=== PATIENT | male | born 1970 | race Caucasian/White ===

== ENCOUNTER 2019-01-08 10:34 | Emergency (ER) | payer SELFPAY ==
[~2019-01-08] VITALS: Ht 182.9 cm; Wt 120.2 kg
--- NOTE | 2019-01-08 11:42 | Diagnostic Imaging Report ---
Indication: Left knee pain and swelling. Time of exam: 11:29 AM Three views of the left knee were obtained. Alignment is normal. Joint spaces are well maintained. The articular surfaces are smooth. No fracture or dislocation is seen. There is a large knee joint effusion in the suprapatellar location. Impression: Large effusion. No acute bony abnormality is detected. Dictated by: Dictated on workstation # [id number]
--- NOTE | 2019-01-08 11:59 | ED Lower Extremity ---
General Chief Complaint: Lower Extremity Stated Complaint: KNEE PAIN Nursing Triage Note: PT STATES LEFT KNEE PAIN AND SWELLING ONSET TUESDAY. PT DENIES ANY TRAUMA TO KNEE TO CAUSE INJURY. PT STATES ELEVATING KNEE AND ADVIL WITHOUT RELIEF. PT DENIES ANY NUMBNESS OR TINGLING IN LEFT LEG OR FOOT. PT WALKS WITH A CANE. Nursing Sepsis Screen: No Definite Risk History of Present Illness Date Seen by Provider: Jan 08, 2019 Time Seen by Provider: 11:05 Initial Comments 48-year-old male presents for left knee pain and swelling. He states that it began 2 days ago. He had no injury. He's been ambulating with a cane and holding it in his left hand. He's taken Advil and Aleve with no resolution of his symptoms. A previous history of injuries or surgeries to his left knee. Onset: other (2 days ago) Severity: mild Pain/Injury Location: left knee Method of Injury: unknown Modifying Factors: Improves With Rest Allergies and Home Medications Allergies Coded Allergies: No Known Drug Allergies (Unverified , 01/08/19) Home Medications Naproxen 500 Mg Tablet, 500 MG PO BID Prescribed by: YRIS GOTTI on 01/08/19 1213 Patient Home Medication List Home Medication List Reviewed: Yes Review of Systems Constitutional: no symptoms reported, see HPI Musculoskeletal: see HPI, joint pain (left knee) All Other Systems Reviewed Negative Unless Noted: Yes Past Pucbxki-Xyyeyh-Qsdzou Hx Past Med/Social Hx: Reviewed Nursing Past Med/Soc Hx Patient Social History Alcohol Use: Occasionally Uses Alcohol Beverage of Choice: Whiskey Recreational Drug Use: No Smoking Status: Current Someday Smoker Type Used: Cigarettes Recent Foreign Travel: No Contact w/Someone Who Travel: No Recent Infectious Disease Expo: No Recent Hopitalizations: No Physical Abuse: No Sexual Abuse: No Mistreated: No Fear: No Past Medical History Surgeries: Yes Appendectomy Respiratory: No Cardiac: Yes Hypertension Neurological: No Genitourinary: No Gastrointestinal: No Musculoskeletal: No Endocrine: No HEENT: No Cancer: No Psychosocial: No Integumentary: No Physical Exam Vital Signs Vital Signs - First Documented 01/08/19 01/08/19 11:05 12:54 Temp 97.6 Pulse 68 Resp 18 B/P (MAP) 121/82 (95) Pulse Ox 99 O2 Delivery Room Air Capillary Refill : Less Than 3 Seconds Height, Weight, BMI Height: 6'0" Weight: 265lbs. oz. 120.362522uj; BMI Method:Stated General Appearance: WD/WN, no apparent distress Cardiovascular: normal peripheral pulses, regular rate, rhythm Respiratory: chest non-tender, lungs clear, normal breath sounds Knees: left knee normal range of motion, left knee no evidence of injury, left knee joint effusion (moderate), left knee pain, left knee soft tissue tenderness, left knee other (full range of motion, no medial or lateral instability, negative Clifford, negative anterior drawer and Cordell.) Neurologic/Psychiatric: no motor/sensory deficits, alert, normal mood/affect, oriented x 3 Skin: normal color, warm/dry Progress/Results/Core Measures Results/Orders My Orders Orders - YRIS GOTTI Knee, Left, 3 Views (01/08/19 11:19) Naproxen Tablet (Naprosyn Tablet) (01/08/19 12:15) Medications Given in ED Current Medications Medications Dose Ordered Sig/Dorian Route Start Time Stop Time Status Last Admin Dose Admin Naproxen 500 mg ONCE ONCE PO 01/08/19 12:15 01/08/19 12:16 DC 01/08/19 12:52 500 MG Vital Signs/I&O 01/08/19 01/08/19 11:05 12:54 Temp 97.6 97.6 Pulse 68 68 Resp 18 18 B/P (MAP) 121/82 (95) 121/82 (95) Pulse Ox 99 O2 Delivery Room Air Blood Pressure Mean: 95 Diagnostic Imaging Diagonstic Imaging: Xray Comments NAME: KARINA [facility] REC#: [id number] PT STATUS: REG ER : 1970 PHYSICIAN: YRIS GOTTI ADMIT DATE: 01/08/19/ER Draft Date of Exam:01/08/19 KNEE, LEFT, 3 VIEWS Indication: Left knee pain and swelling. Time of exam: 11:29 AM Three views of the left knee were obtained. Alignment is normal. Joint spaces are well maintained. The articular surfaces are smooth. No fracture or dislocation is seen. There is a large knee joint effusion in the suprapatellar location. Impression: Large effusion. No acute bony abnormality is detected. Dictated on workstation # [id number] Dict: 01/08/19 1138 Trans: 01/08/19 1141 [facility] [id number] Interpreted by: AMERICA NAPIER MD Electronically signed by: Reviewed: Reviewed by Me Departure Impression Primary Impression: Left knee pain Qualified Codes: M25.562 - Pain in left knee Additional Impression: Effusion, left knee Disposition: 01 HOME, SELF-CARE Condition: Improved Departure-Patient Inst. Decision time for Depature: 12:00 Patient Instructions: Knee Pain (DC) Add. Discharge Instructions: Take the naproxen 1 tablet twice daily with food. You may use Tylenol 650 mg every 6-8 hours as needed for additional pain relief. Use Malachi wrap when ambulatory and ice pack to left knee 20 min every 2 hours. Follow-up with your primary care provider at [facility] for referral to orthopedics if symptoms are not improving or worsen. Continue to use the cane, in your right hand. Return to emergency department for new, urgent health care needs. All discharge instructions reviewed with patient and/or family. Voiced understanding. Scripts Naproxen (Naprosyn) 500 Mg Tablet 500 MG PO BID, #30 TAB 0 Refills Prov: YRIS GOTTI 01/08/19 YRIS GOTTI Jan 08, 2019 11:59
[2019-01-08] MEDS ORDERED: NAPR-1071 PO ×2 (12:11→12:13)
[2019-01-08] MEDS ORDERED: NAPROXEN 250 MG (NAPROSYN) TABLET PO ONE (12:15)
[2019-01-08 12:54] VITALS: BP 121/82
== END 2019-01-08 12:30 | disposition home or self-care (01) ==
LOC: EDUNIT# 10:34 → ER 10:36
DX: M25.462 Effusion, left knee (principal); I10 Essential (primary) hypertension; F17.210 Nicotine dependence, cigarettes, uncomplicated; Z90.49 Acquired absence of other specified parts of digestive tract
CPT/HCPCS: 73562

== ENCOUNTER 2021-03-01 17:44 | Emergency (ER) | payer SELFPAY ==
[~2021-03-01] VITALS: Ht 185.4 cm; Wt 128.3 kg
[~2021-03-01 17:44] MED LIST: NAPR-1071 PO
--- OUTSIDE RECORDS SUMMARY | 2021-03-01 17:50 | XMS REPORT | Clinical Summary ---
Author Author [facility] Organization [facility] Address Unknown Phone Unavailable Care Team Providers Care Child Care Coordinator Name Role Phone PCP Unavailable Allergies Not on File Medications Not on file Active Problems Not on file Social History Date Tobacco Use Types Packs/Day Years Used Never Assessed Sex Assigned at Date Recorded Not on file Last Filed Vital Signs Not on file Plan of Treatment Not on file Results Not on filefrom Last 3 Months Advance Directives For more information, please contact: [phone] Patient Help Desk Technician Explanation Type Date Recorded Health Care 10/27/2013 12:28 AM Directive
[2021-03-01] MEDS ORDERED: KETOROLAC 30 MG/ML VIAL IVP ONE (18:15)
[2021-03-01] MEDS ORDERED: NS IV 1000 ML 1,000 ML IV SCH (18:15)
[2021-03-01 18:28] LABS: HEMATOCRIT 44 % (40-54); HEMOGLOBIN 15.9 G/DL (13.3-17.7); MEAN CORPUSCULAR HEMOGLOBIN 32 PG (25-34); MEAN CORPUSCULAR HGB CONC 36 G/DL (32-36); MEAN CORPUSCULAR VOLUME 87 FL (80-99); MEAN PLATELET VOLUME 10.9 FL (7.4-10.4); PLATELET COUNT 144 10^3/uL (130-400); WHITE BLOOD COUNT 5.5 10^3/uL (4.3-11.0)
[2021-03-01 18:29] LABS: BASOPHILS % (AUTO) 0 % (0-10); EOSINOPHILS % (AUTO) 0 % (0-10); LYMPHOCYTES # (AUTO) 0.7 X 10^3 (1.0-4.0); LYMPHOCYTES % (AUTO) 13 % (12-44); MONOCYTES # (AUTO) 0.3 X 10^3 (0.0-1.0); MONOCYTES % (AUTO) 6 % (0-12); NEUTROPHILS # (AUTO) 4.4 X 10^3 (1.8-7.8); NEUTROPHILS % (AUTO) 81 % (42-75)
--- NOTE | 2021-03-01 18:37 | Diagnostic Imaging Report ---
Indication: Shortness of breath Portable chest 6:19 PM Heart size and pulmonary vascularity are normal. Lungs are clear. There are no effusions or pneumothoraces. IMPRESSION: Negative chest Dictated by: Dictated on workstation # [id number]
[2021-03-01 18:48] LABS: ALANINE AMINOTRANSFERASE 243 U/L (0-55); ALBUMIN 4.4 GM/DL (3.2-4.5); ALKALINE PHOSPHATASE 90 U/L (40-136); BILIRUBIN,TOTAL 0.4 MG/DL (0.1-1.0); BUN/CREATININE RATIO 19; CARBON DIOXIDE 25 MMOL/L (21-32); CHLORIDE 88 MMOL/L (98-107); CREATININE SERUM 1.35 MG/DL (0.60-1.30); GFR ESTIMATED 56; GLUCOSE 236 MG/DL (70-105); POTASSIUM 4.7 MMOL/L (3.6-5.0); SODIUM 128 MMOL/L (135-145); TOTAL PROTEIN 8.1 GM/DL (6.4-8.2)
[2021-03-01] MEDS ORDERED: HOLD METFORMIN - RECEIVED CONTRAST 20 ML VIAL IV SCH (19:00)
[2021-03-01] MEDS ORDERED: IOHEXOL 350 MG/ML 100 ML (OMNIPAQUE 350) VIAL IV ONE (19:00)
[2021-03-01] MEDS ORDERED: NS 100 ML (IVPB) BAG IV ONE (19:00)
[2021-03-01] MEDS ORDERED: CATHETER FLUSH 10 ML SYR IV PRN (19:00)
--- NOTE | 2021-03-01 19:15 | ED Respiratory ---
General Chief Complaint: Respiratory Problems Stated Complaint: SOB; LETHARGY; COVID+ Nursing Triage Note: Patient presents to the ED with c/o shortness of breath. He reports that he tested positive for COVID on February 23 but his symptoms began on February 19. Patient states that 2 days ago he felt like he was paralyzed and unable to move. He reports that his symptoms have improved today but is concerned about pneumonia due to his continued shortness of breath. Patient ambulated from vehicle to room independently. Source: patient Exam Limitations: no limitations History of Present Illness Date Seen by Provider: Mar 01, 2021 Time Seen by Provider: 18:00 Initial Comments Patient is a 50-year-old male tested positive for Covid 6 days ago presents with shortness of breath cough, body aches and fatigue. Currently denies fever, nausea vomiting or sweats. Reports mild headache. Denies productive cough. Reports chest tightness chest pain with dyspnea with moderate exertion. He was treated with prednisone which she has completed, doxycycline and albuterol which he is currently taking. No history of cardiopulmonary disease. No other acute symptoms or complaints. Timing/Duration: week, getting worse Prior Episodes/Possible Cause: no prior episodes Associated Symptoms: other Allergies and Home Medications Allergies Coded Allergies: No Known Drug Allergies (Unverified , 01/08/19) Home Medications Naproxen 500 Mg Tablet, 500 MG PO BID Prescribed by: YRIS GTOTI on 01/08/19 1213 Patient Home Medication List Home Medication List Reviewed: Yes Review of Systems Review of Systems Constitutional: see HPI EENTM: see HPI Respiratory: see HPI Cardiovascular: see HPI Gastrointestinal: see HPI Genitourinary: see HPI Musculoskeletal: see HPI Skin: see HPI Psychiatric/Neurological: See HPI, Anxiety Hematologic/Lymphatic: See HPI All Other Systems Reviewed Negative Unless Noted: Yes Past Lfhhqas-Tptgwg-Jzkooe Hx Patient Social History Tobacco Use?: Yes Tobacco type used: Cigarettes Smoking Status: Former Smoker Use of E-Cig and/or Vaping dev: No Substance use?: No Alcohol Use?: Yes Alcohol type: Hard Liquor Alcohol Frequency: Couple times a week Pt feels they are or have been: No Past Medical History Surgeries: Yes Appendectomy Respiratory: No Cardiac: Yes Hypertension Neurological: No Genitourinary: No Gastrointestinal: No Musculoskeletal: No Endocrine: No HEENT: No Cancer: No Psychosocial: No Integumentary: No Physical Exam Vital Signs - First Documented 03/01/21 18:00 Temp 36.7 Pulse 67 Resp 21 B/P (MAP) 101/62 (75) Pulse Ox 95 O2 Delivery Room Air Capillary Refill : Less Than 3 Seconds Height: 6'0" Weight: 265lbs. oz. 120.483138ge; 37.00 BMI Method:Stated General Appearance: WD/WN, no apparent distress Eyes: Bilateral Eye Normal Inspection, Bilateral Eye PERRL, Bilateral Eye EOMI HEENT: PERRL/EOMI, TMs normal, pharynx normal, other Neck: non-tender, full range of motion, supple, normal inspection Respiratory: other (Diminished breath sounds bilaterally.) Cardiovascular: normal peripheral pulses, regular rate, rhythm Gastrointestinal: normal bowel sounds, non tender, soft Extremities: non-tender, normal inspection Neurologic/Psychiatric: torch straightener II-XII nml as tested, no motor/sensory deficits, alert, oriented x 3 Focused Exam Sepsis Stage: Ruled Out Progress/Results/Core Measures Suspected Sepsis SIRS Temperature: Pulse: 67 Respiratory Rate: 21 Laboratory Tests 03/01/21 18:24: White Blood Count 5.5 Blood Pressure 101 /62 Mean: 75 Laboratory Tests 03/01/21 18:24: Creatinine 1.35H, Platelet Count 144, Total Bilirubin 0.4 Results/Orders Lab Results Laboratory Tests Test 03/01/21 18:24 Range/Units White Blood Count 5.5 4.3-11.0 10^3/uL Red Blood Count 5.01 4.35-5.85 10^6/uL Hemoglobin 15.9 13.3-17.7 G/DL Hematocrit 44 40-54 % Mean Corpuscular Volume 87 80-99 FL Mean Corpuscular Hemoglobin 32 25-34 PG Mean Corpuscular Hemoglobin Concent 36 32-36 G/DL Red Cell Distribution Width 12.5 10.0-14.5 % Platelet Count 144 130-400 10^3/uL Mean Platelet Volume 10.9 H 7.4-10.4 FL Immature Granulocyte % (Auto) 1 % Neutrophils (%) (Auto) 81 H 42-75 % Lymphocytes (%) (Auto) 13 12-44 % Monocytes (%) (Auto) 6 0-12 % Eosinophils (%) (Auto) 0 0-10 % Basophils (%) (Auto) 0 0-10 % Neutrophils # (Auto) 4.4 1.8-7.8 X 10^3 Lymphocytes # (Auto) 0.7 L 1.0-4.0 X 10^3 Monocytes # (Auto) 0.3 0.0-1.0 X 10^3 Eosinophils # (Auto) 0.0 0.0-0.3 10^3/uL Basophils # (Auto) 0.0 0.0-0.1 10^3/uL Immature Granulocyte # (Auto) 0.0 0.0-0.1 10^3/uL Sodium Level 128 L 135-145 MMOL/L Potassium Level 4.7 3.6-5.0 MMOL/L Chloride Level 88 L 98-107 MMOL/L Carbon Dioxide Level 25 21-32 MMOL/L Anion Gap 15 H 5-14 MMOL/L Blood Urea Nitrogen 26 H 7-18 MG/DL Creatinine 1.35 H 0.60-1.30 MG/DL Estimat Glomerular Filtration Rate 56 BUN/Creatinine Ratio 19 Glucose Level 236 H 70-105 MG/DL Calcium Level 9.0 8.5-10.1 MG/DL Corrected Calcium 8.7 8.5-10.1 MG/DL Total Bilirubin 0.4 0.1-1.0 MG/DL Aspartate Amino Transf (AST/SGOT) 323 H 5-34 U/L Alanine Aminotransferase (ALT/SGPT) 243 H 0-55 U/L Alkaline Phosphatase 90 40-136 U/L Troponin I < 0.30 <0.30 NG/ML Pro-B-Type Natriuretic Peptide 62.1 <75.0 PG/ML Total Protein 8.1 6.4-8.2 GM/DL Albumin 4.4 3.2-4.5 GM/DL My Orders Orders - VANCE MORROW DO Cbc With Automated Diff (03/01/21 18:10) Comprehensive Metabolic Panel (03/01/21 18:10) Chest 1 View Ap/Pa Only (03/01/21 18:10) Troponin I Fs (03/01/21 18:10) Probnp Fs (03/01/21 18:10) Ns Iv 1000 Ml (Sodium Chloride 0.9%) (03/01/21 18:15) Ketorolac Injection (Toradol Injection) (03/01/21 18:15) Ct Angio Chest W (03/01/21 18:49) Iohexol Injection (Omnipaque 350 Mg/Ml 1 (03/01/21 19:00) Received Contrast (Hold Metformin- Contr (03/01/21 19:00) Sodium Chloride Flush (Catheter Flush Sy (03/01/21 19:00) Ns (Ivpb) (Sodium Chloride 0.9% Ivpb Bag (03/01/21 19:00) Medications Given in ED Current Medications Medications Dose Ordered Sig/Dorian Route Start Time Stop Time Status Last Admin Dose Admin Iohexol 100 ml ONCE ONCE IV 03/01/21 19:00 03/01/21 19:01 DC 03/01/21 19:19 100 ML Ketorolac Tromethamine 30 mg ONCE ONCE IVP 03/01/21 18:15 03/01/21 18:16 DC 03/01/21 18:24 30 MG Sodium Chloride 100 ml ONCE ONCE IV 03/01/21 19:00 03/01/21 19:01 DC 03/01/21 19:19 80 ML Vital Signs/I&O 03/01/21 18:00 Temp 36.7 Pulse 67 Resp 21 B/P (MAP) 101/62 (75) Pulse Ox 95 O2 Delivery Room Air Capillary Refill : Less Than 3 Seconds Blood Pressure Mean: 75 Departure Communication (Admissions) Chest x-ray: No acute cardiopulmonary disease per radiology report. CTA chest: No findings of PE. IV fluids, Toradol given. Vital signs stable. Chest x-ray clear. Lab work nonspecific. History of alcoholism. Recommendations are continued supportive care with watchful waiting and PCP follow-up in 1 week. Return precautions reviewed. Patient verbalized understanding and agreement discharge instructions prior to departure. Impression Primary Impression: COVID Additional Impressions: Hyponatremia Transaminitis Disposition: HOME, SELF-CARE Condition: Stable Departure-Patient Inst. Referrals: MATT NAGY APRN (PCP) Primary Care Physician [facility] (Family) Primary Care Physician Patient Instructions: COVID-19 (DC) Add. Discharge Instructions: You were evaluated in the emergency department for cough, shortness of breath generalized weakness. Your symptoms are consistent with Covid. Chest x-ray and CT imaging were performed did not show evidence of bacterial pneumonia or pulmonary emboli. It is important that you follow-up with your PCP in 1 week to review lab results and for reevaluation. Return to the ED if new or worsening symptoms. All discharge instructions reviewed with patient and/or family. Voiced understanding. VANCE MORROW DO Mar 01, 2021 19:15
--- NOTE | 2021-03-01 19:50 | Diagnostic Imaging Report ---
PROCEDURE: CT angiography of the chest with contrast. TECHNIQUE: Multiple contiguous axial images were obtained through the chest after uneventful bolus administration of intravenous contrast. 3D reconstructed CTA MIP acquisitions were also performed. Auto Exposure Controls were utilized during the CT exam to meet ALARA standards for radiation dose reduction. INDICATION: Chest pain, shortness of breath There are some faint patchy groundglass infiltrates in the lungs. There is no pulmonary embolus. Aorta appears normal. There is no evidence for right ventricular strain. There is no effusion or pneumothorax. There is no hilar or mediastinal lymphadenopathy. IMPRESSION: Faint patchy groundglass infiltrates in the lungs consistent with Covid pneumonia. Dictated by: Dictated on workstation # [id number]
[2021-03-01 20:04] VITALS: BP 98/62
== END 2021-03-01 20:04 | disposition home or self-care (01) ==
LOC: EDUNIT# 17:44 → ER FS 17:46
DX: U07.1 COVID-19 (principal); E87.1 Hypo-osmolality and hyponatremia; R74.01 Elevation of levels of liver transaminase levels; I10 Essential (primary) hypertension; Z87.891 Personal history of nicotine dependence
CPT/HCPCS: 36415; 71045; 71275; 80053; 83880; 84484; 85025

== ENCOUNTER 2021-03-06 09:44 | Emergency (ER) | payer SELFPAY ==
[~2021-03-06] VITALS: Ht 182.9 cm; Wt 128.4 kg
--- NOTE | 2021-03-06 09:59 | ED General ---
General Stated Complaint: SOB; COVID+ History of Present Illness Date Seen by Provider: Mar 06, 2021 Time Seen by Provider: 09:59 Initial Comments 50-year-old male presents with shortness of air worsening last night. Dx with Covid on 20 February. Seen by his PCP on 23 February and given steroids and a Z-pack. Seen in this ER on 01 March and had work-up including CT chest and sent home. Overall feels like he is doing ok, denies signif PMHx...tells nurse he used to be an alcoholic, but states he no longer drinks. Allergies and Home Medications Allergies Coded Allergies: No Known Drug Allergies (Unverified , 01/08/19) Home Medications Naproxen 500 Mg Tablet, 500 MG PO BID Prescribed by: YRIS GOTTI on 01/08/19 1213 Patient Home Medication List Home Medication List Reviewed: Yes Review of Systems Review of Systems Constitutional: No chills, No fever; malaise; No weakness EENTM: no symptoms reported Respiratory: cough; No orthopnea; short of breath; No stridor, No wheezing Cardiovascular: No edema, No palpitations Gastrointestinal: No abdominal pain, No loss of appetite, No nausea, No vomiting Skin: No change in color, No rash Psychiatric/Neurological: Denies Headache, Denies Numbness, Denies Paresthesia, Denies Seizure, Denies Weakness Past Nmnqony-Rbxodp-Gjyrzh Hx Patient Social History Tobacco Use?: No Alcohol Use?: No Past Medical History Surgeries: Yes Appendectomy Respiratory: No Cardiac: Yes Hypertension Neurological: No Genitourinary: No Gastrointestinal: No Musculoskeletal: No Endocrine: No HEENT: No Cancer: No Psychosocial: No Integumentary: No Physical Exam Vital Signs Vital Signs - First Documented 03/06/21 03/06/21 09:55 15:45 Temp 35.9 Pulse 72 Resp 20 B/P (MAP) 102/61 (75) Pulse Ox 92 O2 Delivery Room Air O2 Flow Rate 2.00 Capillary Refill : Height, Weight, BMI Height: 6'0" Weight: 265lbs. oz. 120.572835nb; 37.00 BMI Method:Stated General Appearance: No Apparent Distress, WD/WN HEENT: PERRL/EOMI, Normal ENT Inspection Respiratory: Chest Non Tender, Lungs Clear, Normal Breath Sounds, No Accessory Muscle Use, No Respiratory Distress Cardiovascular: Regular Rate, Rhythm, No Gallop, No JVD Gastrointestinal: Non Tender, Soft Back: Normal Inspection, No CVA Tenderness Extremity: Normal Capillary Refill, Non Tender Neurologic/Psychiatric: Alert, Oriented x3, No Motor/Sensory Deficits, Normal Mood/Affect Skin: Normal Color, Warm/Dry Focused Exam Lactate Level 03/06/21 11:30: Lactic Acid Level 1.34 Lactic Acid Level Laboratory Tests Test 03/06/21 11:30 Lactic Acid Level 1.34 MMOL/L (0.50-2.00) Progress/Results/Core Measures Suspected Sepsis SIRS Temperature: Pulse: Respiratory Rate: Laboratory Tests 03/06/21 10:15: White Blood Count 3.3L Blood Pressure / Mean: 03/06/21 11:30: Lactic Acid Level 1.34 Laboratory Tests 03/06/21 10:15: Creatinine 1.65H, Platelet Count 193, Total Bilirubin 0.5 Results/Orders Lab Results Laboratory Tests Test 03/06/21 10:15 03/06/21 11:30 Range/Units White Blood Count 3.3 L 4.3-11.0 10^3/uL Red Blood Count 4.63 4.30-5.52 10^6/uL Hemoglobin 14.3 13.3-17.7 g/dL Hematocrit 40 40-54 % Mean Corpuscular Volume 87 80-99 fL Mean Corpuscular Hemoglobin 31 25-34 pg Mean Corpuscular Hemoglobin Concent 36 32-36 g/dL Red Cell Distribution Width 12.3 10.0-14.5 % Platelet Count 193 130-400 10^3/uL Mean Platelet Volume 10.6 9.0-12.2 fL Immature Granulocyte % (Auto) 1 % Neutrophils (%) (Auto) 81 H 42-75 % Lymphocytes (%) (Auto) 12 12-44 % Monocytes (%) (Auto) 7 0-12 % Eosinophils (%) (Auto) 0 0-10 % Basophils (%) (Auto) 0 0-10 % Neutrophils # (Auto) 2.7 1.8-7.8 X 10^3 Lymphocytes # (Auto) 0.4 L 1.0-4.0 X 10^3 Monocytes # (Auto) 0.2 0.0-1.0 X 10^3 Eosinophils # (Auto) 0.0 0.0-0.3 10^3/uL Basophils # (Auto) 0.0 0.0-0.1 10^3/uL Immature Granulocyte # (Auto) 0.0 0.0-0.1 10^3/uL D-Dimer 1.03 H 0.00-0.49 UG/ML Sodium Level 128 L 135-145 MMOL/L Potassium Level 4.4 3.6-5.0 MMOL/L Chloride Level 90 L 98-107 MMOL/L Carbon Dioxide Level 26 21-32 MMOL/L Anion Gap 12 5-14 MMOL/L Blood Urea Nitrogen 39 H 7-18 MG/DL Creatinine 1.65 H 0.60-1.30 MG/DL Estimat Glomerular Filtration Rate 44 BUN/Creatinine Ratio 24 Glucose Level 318 H 70-105 MG/DL Calcium Level 8.4 L 8.5-10.1 MG/DL Corrected Calcium 8.6 8.5-10.1 MG/DL Total Bilirubin 0.5 0.1-1.0 MG/DL Aspartate Amino Transf (AST/SGOT) 96 H 5-34 U/L Alanine Aminotransferase (ALT/SGPT) 117 H 0-55 U/L Alkaline Phosphatase 104 40-136 U/L C-Reactive Protein 18.08 H <0.50 MG/DL Pro-B-Type Natriuretic Peptide 124.4 H <75.0 PG/ML Total Protein 7.4 6.4-8.2 GM/DL Albumin 3.7 3.2-4.5 GM/DL Procalcitonin 0.77 H <0.10 NG/ML Serum Alcohol < 10 <10 MG/DL Lactic Acid Level 1.34 0.50-2.00 MMOL/L Ferritin 3536.4 H 32.0-356.0 ng/mL My Orders Orders - ROVENSTINE,UMU L DO Chest 1 View Ap/Pa Only (03/06/21 10:12) Cbc With Automated Diff (03/06/21 10:12) Comprehensive Metabolic Panel (03/06/21 10:12) Ns Iv 1000 Ml (Sodium Chloride 0.9%) (03/06/21 11:00) Methylprednisolone Sod Succ (Solu-Medrol (03/06/21 11:00) Alcohol (03/06/21 11:07) Procalcitonin (Pct) (03/06/21 11:10) Crp Fs (03/06/21 11:10) Ferritin (03/06/21 11:10) Probnp Fs (03/06/21 11:10) Lactic Acid Analyzer (03/06/21 11:10) Fibrin Degradation Products (03/06/21 11:10) Ns Iv 1000 Ml (Sodium Chloride 0.9%) (03/06/21 11:22) Methylprednisolone Sod Succ (Solu-Medrol (03/06/21 11:22) Medications Given in ED Vital Signs/I&O 03/06/21 03/06/21 09:55 15:45 Temp 35.9 Pulse 72 74 Resp 20 18 B/P (MAP) 102/61 (75) 125/82 Pulse Ox 92 95 O2 Delivery Room Air Nasal Cannula O2 Flow Rate 2.00 Capillary Refill : Diagnostic Imaging Diagonstic Imaging: Xray Plain Films/CT/US/NM/MRI: chest Comments Date of Exam:03/06/21 CHEST 1 VIEW AP/PA ONLY EXAMINATION: Chest, one view. HISTORY: COVID-19, shortness of breath. COMPARISON: Chest radiograph 03/01/2021. FINDINGS: Heart size is mildly enlarged. Pulmonary vasculature is normal. There are mild interstitial opacities throughout the lungs, greatest within the lung bases. No pleural effusion or pneumothorax. The osseous structures are intact. IMPRESSION: 1. Mild interstitial opacities within the lungs compatible with history of COVID-19 and pneumonia. Dictated on workstation # [id number] Dict: 03/06/21 1052 Trans: 03/06/21 1055 [id number] Interpreted by: CHAYA JENKINS DO Electronically signed by: Departure Communication (Admissions) spoke to Dr Patino who accepts for admission (pending bed avail) Impression Primary Impression: COVID Additional Impressions: Hypoxia Hyponatremia Dehydration Disposition: HOME, SELF-CARE Condition: Improved Admissions Decision to Admit Reason: Admit from ER (General) Decision to Admit/Date: Mar 06, 2021 Time/Decision to Admit Time: 11:00 Transfer Transfer Reason: Diversion Time Spoke to Accepting Phy: 12:47 Transfer Progress Notes Difficulty finding in-pt. beds. - [facility]- no beds, [facility]- no beds, [facility]- no beds Called Marilee Garcia and got accepting @ 1247 Iliana Riley NP accepts Given HPI and pertinent labs. Pt stable Departure-Patient Inst. Referrals: MATT NAGY APRN (PCP) Primary Care Physician [facility] (Family) Primary Care Physician UMU JOHNSON DO Mar 06, 2021 09:59
[2021-03-06 10:29] LABS: HEMATOCRIT 40 % (40-54); HEMOGLOBIN 14.3 g/dL (13.3-17.7); MEAN CORPUSCULAR HEMOGLOBIN 31 pg (25-34); MEAN CORPUSCULAR VOLUME 87 fL (80-99); WHITE BLOOD COUNT 3.3 10^3/uL (4.3-11.0)
[2021-03-06 10:30] LABS: BASOPHILS % (AUTO) 0 % (0-10); EOSINOPHILS % (AUTO) 0 % (0-10); LYMPHOCYTES # (AUTO) 0.4 X 10^3 (1.0-4.0); LYMPHOCYTES % (AUTO) 12 % (12-44); MEAN CORPUSCULAR HGB CONC 36 g/dL (32-36); MEAN PLATELET VOLUME 10.6 fL (9.0-12.2); MONOCYTES # (AUTO) 0.2 X 10^3 (0.0-1.0); MONOCYTES % (AUTO) 7 % (0-12); NEUTROPHILS # (AUTO) 2.7 X 10^3 (1.8-7.8); NEUTROPHILS % (AUTO) 81 % (42-75); PLATELET COUNT 193 10^3/uL (130-400)
[2021-03-06 10:50] LABS: BILIRUBIN,TOTAL 0.5 MG/DL (0.1-1.0); CALCIUM 8.4 MG/DL (8.5-10.1); CREATININE SERUM 1.65 MG/DL (0.60-1.30); POTASSIUM 4.4 MMOL/L (3.6-5.0)
[2021-03-06 10:51] LABS: ALBUMIN 3.7 GM/DL (3.2-4.5); TOTAL PROTEIN 7.4 GM/DL (6.4-8.2)
--- NOTE | 2021-03-06 10:55 | Diagnostic Imaging Report ---
EXAMINATION: Chest, one view. HISTORY: COVID-19, shortness of breath. COMPARISON: Chest radiograph 03/01/2021. FINDINGS: Heart size is mildly enlarged. Pulmonary vasculature is normal. There are mild interstitial opacities throughout the lungs, greatest within the lung bases. No pleural effusion or pneumothorax. The osseous structures are intact. IMPRESSION: 1. Mild interstitial opacities within the lungs compatible with history of COVID-19 and pneumonia. Dictated by: Dictated on workstation # [id number]
[2021-03-06] MEDS ORDERED: NS IV 1000 ML 1,000 ML IV SCH (11:00)
[2021-03-06] MEDS ORDERED: methylPREDNISolone 125 MG (Solu-MEDROL) VIAL IVP ONE (11:00)
[2021-03-06] MEDS ORDERED: NS IV 1000 ML 1,000 ML ONE (11:22)
[2021-03-06] MEDS ORDERED: methylPREDNISolone 125 MG (Solu-MEDROL) VIAL ONE (11:22)
[2021-03-06 15:45] VITALS: BP 125/82
== END 2021-03-06 15:45 | disposition short-term general hospital (02) ==
LOC: EDUNIT# 09:44 → ER FS 09:47
DX: U07.1 COVID-19 (principal); R09.02 Hypoxemia; E87.1 Hypo-osmolality and hyponatremia; E86.0 Dehydration; I10 Essential (primary) hypertension
CPT/HCPCS: 36415; 71045; 80053; 82728; 83605; 83880; 84145; 85025; 85379; 86141; 99285; G0480; 80320

== ENCOUNTER 2021-03-10 12:40 | Emergency (ER) | payer SELFPAY ==
[~2021-03-10] VITALS: Ht 182.8 cm; Wt 128.4 kg
--- NOTE | 2021-03-10 12:58 | ED Respiratory ---
General Chief Complaint: Respiratory Problems Stated Complaint: LOW STATS Source: patient Exam Limitations: no limitations History of Present Illness Date Seen by Provider: Mar 10, 2021 Time Seen by Provider: 12:52 Initial Comments 50 y/o male presents from out-pt clinic where he was seen today for a hospital follow-up. Patient says he felt ok yesterday, but the act of going to the clinic today, wore him out and he was very fatigued and more soa. Sx onset 02/18, Dx on 02/20 then seen in [facility] and given Abx and steroids (prior to onset of hypoxia or dypnea). Seen in the ER again on 03/03, given another Abx, then again on 03/06 and admitted w progression of illness & worsening sx. Allergies and Home Medications Allergies Coded Allergies: No Known Drug Allergies (Unverified , 01/08/19) Home Medications Dexamethasone 6 Mg Tablet, 6 MG PO DAILY Prescribed by: UMU HERNANDEZSTMARIBEL on 03/10/21 1406 Famotidine 20 Mg Tablet, 40 MG PO BID Prescribed by: UMU HERNANDEZSTMARIBEL on 03/10/21 1406 Ivermectin 3 Mg Tablet, 30 MG PO DAILY Prescribed by: UMU HERNANDEZSTMARIBEL on 03/10/21 1406 Naproxen 500 Mg Tablet, 500 MG PO BID Prescribed by: YRIS GOTTI on 01/08/19 1213 Patient Home Medication List Home Medication List Reviewed: Yes Review of Systems Review of Systems Constitutional: malaise EENTM: no symptoms reported Respiratory: cough, short of breath Cardiovascular: No chest pain, No edema, No palpitations, No syncope Gastrointestinal: No abdominal pain, No constipation; diarrhea (having loose st ool), loss of appetite; No nausea, No vomiting Musculoskeletal: No back pain, No joint pain, No muscle pain Skin: No change in color, No rash Past Zapqepr-Kxcdnq-Qqonfd Hx Patient Social History Tobacco Use?: No Past Medical History Surgery/Hospitalization HX: HTN and pre-diabetes Surgeries: Yes Appendectomy Respiratory: No Cardiac: Yes Hypertension Neurological: No Genitourinary: No Gastrointestinal: No Musculoskeletal: No Endocrine: No HEENT: No Cancer: No Psychosocial: No Integumentary: No Physical Exam Vital Signs - First Documented 03/10/21 12:48 Temp 37.1 Pulse 89 Resp 24 B/P (MAP) 109/71 (84) Pulse Ox 96 O2 Delivery Nasal Cannula Capillary Refill : Height: 6'0" Weight: 265lbs. oz. 120.380815gm; 38.00 BMI Method:Stated General Appearance: WD/WN, no apparent distress HEENT: PERRL/EOMI, normal ENT inspection Neck: non-tender, supple Respiratory: chest non-tender, lungs clear, normal breath sounds, no respiratory distress, no accessory muscle use Cardiovascular: no edema, no JVD Gastrointestinal: non tender, soft Extremities: normal range of motion, non-tender, no pedal edema Neurologic/Psychiatric: no motor/sensory deficits, alert, normal mood/affect, oriented x 3 Skin: normal color, warm/dry Progress/Results/Core Measures Suspected Sepsis SIRS Temperature: Pulse: Respiratory Rate: Laboratory Tests 03/10/21 13:11: White Blood Count 10.1 Blood Pressure / Mean: Laboratory Tests 03/10/21 13:11: Creatinine 1.19, Platelet Count 433H, Total Bilirubin 0.8 Results/Orders Lab Results Laboratory Tests Test 03/10/21 13:11 Range/Units White Blood Count 10.1 4.3-11.0 10^3/uL Red Blood Count 4.88 4.30-5.52 10^6/uL Hemoglobin 15.2 13.3-17.7 g/dL Hematocrit 43 40-54 % Mean Corpuscular Volume 87 80-99 fL Mean Corpuscular Hemoglobin 31 25-34 pg Mean Corpuscular Hemoglobin Concent 36 32-36 g/dL Red Cell Distribution Width 12.4 10.0-14.5 % Platelet Count 433 H 130-400 10^3/uL Mean Platelet Volume 9.7 9.0-12.2 fL Immature Granulocyte % (Auto) 3 % Neutrophils (%) (Auto) 84 H 42-75 % Lymphocytes (%) (Auto) 7 L 12-44 % Monocytes (%) (Auto) 5 0-12 % Eosinophils (%) (Auto) 1 0-10 % Basophils (%) (Auto) 0 0-10 % Neutrophils # (Auto) 8.5 H 1.8-7.8 X 10^3 Lymphocytes # (Auto) 0.7 L 1.0-4.0 X 10^3 Monocytes # (Auto) 0.5 0.0-1.0 X 10^3 Eosinophils # (Auto) 0.1 0.0-0.3 10^3/uL Basophils # (Auto) 0.0 0.0-0.1 10^3/uL Immature Granulocyte # (Auto) 0.3 H 0.0-0.1 10^3/uL Neutrophils % (Manual) 79 % Lymphocytes % (Manual) 6 % Monocytes % (Manual) 7 % Eosinophils % (Manual) 1 % Metamyelocytes % 1 % Band Neutrophils 6 % Blood Morphology Comment NORMAL Sodium Level 125 *L 135-145 MMOL/L Potassium Level 4.1 3.6-5.0 MMOL/L Chloride Level 86 L 98-107 MMOL/L Carbon Dioxide Level 24 21-32 MMOL/L Anion Gap 15 H 5-14 MMOL/L Blood Urea Nitrogen 20 H 7-18 MG/DL Creatinine 1.19 0.60-1.30 MG/DL Estimat Glomerular Filtration Rate 64 BUN/Creatinine Ratio 17 Glucose Level 178 H 70-105 MG/DL Calcium Level 9.2 8.5-10.1 MG/DL Corrected Calcium 9.5 8.5-10.1 MG/DL Total Bilirubin 0.8 0.1-1.0 MG/DL Aspartate Amino Transf (AST/SGOT) 46 H 5-34 U/L Alanine Aminotransferase (ALT/SGPT) 38 0-55 U/L Alkaline Phosphatase 84 40-136 U/L C-Reactive Protein 31.96 H <0.50 MG/DL Total Protein 7.9 6.4-8.2 GM/DL Albumin 3.6 3.2-4.5 GM/DL My Orders Orders - UMU JOHNSON DO Ed Iv/Invasive Line Start (03/10/21 12:59) Chest 1 View Ap/Pa Only (03/10/21 12:59) Crp Fs (03/10/21 12:59) Cbc With Automated Diff (03/10/21 13:01) Comprehensive Metabolic Panel (03/10/21 13:01) Manual Differential (03/10/21 13:11) Ns Iv 1000 Ml (Sodium Chloride 0.9%) (03/10/21 13:45) Ns Iv 1000 Ml (Sodium Chloride 0.9%) (03/10/21 13:45) Medications Given in ED Current Medications Medications Dose Ordered Sig/Dorian Route Start Time Stop Time Status Last Admin Dose Admin Sodium Chloride 1,000 ml @ 500 mls/hr ONCE ONCE IV 03/10/21 13:45 03/10/21 15:19 DC 03/10/21 13:47 500 MLS/HR Vital Signs/I&O 03/10/21 03/10/21 12:48 15:10 Temp 37.1 37.1 Pulse 89 78 Resp 24 22 B/P (MAP) 109/71 (84) 115/71 (84) Pulse Ox 96 97 O2 Delivery Nasal Cannula Room Air Capillary Refill : Progress Note : Progress Note Patient stable w O2 sats = 99% on 2 liters/nc. CXR w diffuse patchy infiltrates c/w viral pneumonia. Labs w Hyponatremia, started NS over 2 hours. Pt admits he is drinking a lot of water and he is thirsty all the time. CRP increased from 18 to 31 since 03/06 and Na change 128-125 in same time frame. Discussed out pt treatment, Rx and dosing of OTC's, advised to limit "free" water intake and to have electrolyte drinks or broth w sodium until follow up in 3 days for repeat labs. Advised return to ER if not improving or worse. Diagnostic Imaging Diagonstic Imaging: Xray Plain Films/CT/US/NM/MRI: chest Comments EXAMINATION: Chest, 03/10/2021. COMPARISON: 03/06/2021. FINDINGS: There is interval development of peripheral airspace opacities diffusely throughout both lungs consistent with the history of COVID. No effusions. No pneumothorax. Heart is stable. Pulmonary vasculature is unchanged. Calcified lymph nodes are seen throughout the mediastinum. IMPRESSION: 1. Interval development of diffuse bilateral infiltrates. Dictated by: Dictated on workstation # [id number] Dict: 03/10/21 1323 Trans: 03/10/21 1409 [id number] Interpreted by: JACQUES RODRÍGUEZ MD Electronically signed by: JACQUES RODRÍGUEZ MD 03/10/21 1409 Departure Impression Primary Impression: Pneumonia due to COVID-19 virus Additional Impressions: Hypoxia Hyponatremia Disposition: 01 HOME, SELF-CARE Condition: Stable Departure-Patient Inst. Decision time for Depature: 14:59 Referrals: MATT NAGY APRN (PCP) Primary Care Physician [facility] (Family) Primary Care Physician Patient Instructions: COVID-19 (DC), Hyponatremia (DC) Add. Discharge Instructions: Take the following daily for 30 days: Vitamin D3 5,000iu daily Vitamin C 1,000mg twice daily Zinc 100mg daily Melatonin 10mg at bedtime Take an Aspirin 325mg daily for 2 weeks FOR LOW Sodium- Avoid excessive water intake, limit to 4 - -8oz glasses of water daily. You should primarily drink sports drinks and have some salty drinks like chicken broth Follow up with your PCP on Tuesday to recheck your sodium level All discharge instructions reviewed with patient and/or family. Voiced understanding. Scripts Ivermectin (Ivermectin) 3 Mg Tablet 30 MG PO DAILY for 5 Days, #50 TAB Prov: UMU JOHNSON DO 03/10/21 Famotidine (Pepcid) 20 Mg Tablet 40 MG PO BID, #10 TAB Prov: UMU JOHNSON DO 03/10/21 Dexamethasone (Dexamethasone) 6 Mg Tablet 6 MG PO DAILY for 7 Days, #5 TAB Prov: UMU JOHNSON DO 03/10/21 UMU JOHNSON DO Mar 10, 2021 12:58
[2021-03-10 13:20] LABS: BASOPHILS % (AUTO) 0 % (0-10); EOSINOPHILS # (AUTO) 0.1 10^3/uL (0.0-0.3); EOSINOPHILS % (AUTO) 1 % (0-10); HEMATOCRIT 43 % (40-54); HEMOGLOBIN 15.2 g/dL (13.3-17.7); LYMPHOCYTES # (AUTO) 0.7 X 10^3 (1.0-4.0); LYMPHOCYTES % (AUTO) 7 % (12-44); MEAN CORPUSCULAR HEMOGLOBIN 31 pg (25-34); MEAN CORPUSCULAR HGB CONC 36 g/dL (32-36); MEAN CORPUSCULAR VOLUME 87 fL (80-99); MEAN PLATELET VOLUME 9.7 fL (9.0-12.2); MONOCYTES # (AUTO) 0.5 X 10^3 (0.0-1.0); MONOCYTES % (AUTO) 5 % (0-12); NEUTROPHILS # (AUTO) 8.5 X 10^3 (1.8-7.8); NEUTROPHILS % (AUTO) 84 % (42-75); PLATELET COUNT 433 10^3/uL (130-400); WHITE BLOOD COUNT 10.1 10^3/uL (4.3-11.0)
--- NOTE | 2021-03-10 13:28 | Diagnostic Imaging Report ---
INDICATION: Short of breath, COVID positive. EXAMINATION: Chest, 03/10/2021. COMPARISON: 03/06/2021. FINDINGS: There is interval development of peripheral airspace opacities diffusely throughout both lungs consistent with the history of COVID. No effusions. No pneumothorax. Heart is stable. Pulmonary vasculature is unchanged. Calcified lymph nodes are seen throughout the mediastinum. IMPRESSION: 1. Interval development of diffuse bilateral infiltrates. Dictated by: Dictated on workstation # [id number]
[2021-03-10 13:33] LABS: BAND NEUTROPHILS 6 %; EOSINOPHILS % (MANUAL) 1 %; LYMPHOCYTES % (MANUAL) 6 %; METAMYELOCYTES % 1 %; MONOCYTES % (MANUAL) 7 %; NEUTROPHILS % (MANUAL) 79 %; RBC MORPH NORMAL
[2021-03-10 13:35] LABS: POTASSIUM 4.1 MMOL/L (3.6-5.0)
[2021-03-10 13:36] LABS: ALBUMIN 3.6 GM/DL (3.2-4.5); BILIRUBIN,TOTAL 0.8 MG/DL (0.1-1.0); CALCIUM 9.2 MG/DL (8.5-10.1); CREATININE SERUM 1.19 MG/DL (0.60-1.30); TOTAL PROTEIN 7.9 GM/DL (6.4-8.2)
[2021-03-10] MEDS ORDERED: NS IV 1000 ML 1,000 ML IV ONE (13:45)
[2021-03-10] MEDS ORDERED: NS IV 1000 ML 1,000 ML ONE (13:45)
[2021-03-10] MEDS ORDERED: IVER3TAB2 PO (14:06)
[2021-03-10] MEDS ORDERED: FAMO-119 PO (14:06)
[2021-03-10] MEDS ORDERED: DEXA6TAB PO (14:06)
[2021-03-10 15:10] VITALS: BP 115/71
== END 2021-03-10 15:10 | disposition home or self-care (01) ==
LOC: EDUNIT# 12:40 → ER FS 12:44
DX: U07.1 COVID-19 (principal); J12.82 Pneumonia due to coronavirus disease 2019; E87.1 Hypo-osmolality and hyponatremia; I10 Essential (primary) hypertension
CPT/HCPCS: 36415; 71045; 80053; 85007; 85027; 86141

== ENCOUNTER → 2021-03-26 | Outpatient (CLI) | payer SELFPAY ==
[~2021-03-26] MED LIST changes: +DEXA6TAB PO; +FAMO-119 PO; +IVER3TAB2 PO
--- NOTE | 2021-03-26 15:12 | Diagnostic Imaging Report ---
INDICATION: Pneumonia, Covid infection. PA and lateral chest obtained at 02:47 p.m. and compared to 03/10/2021. The heart is mildly enlarged. The bilateral infiltrates appear to be worsened compared to the prior study, with increased infiltrate in the perihilar regions. There is no pneumothorax or pleural fluid. IMPRESSION: Worsening bilateral perihilar infiltrates compared to the prior study. No pneumothorax or pleural fluid. Dictated by: Dictated on workstation # [id number]
== END ==
LOC: RAD FS 14:36
PROVIDERS: ATTEND Nurse Practitioner Family
DX: R91.8 Other nonspecific abnormal finding of lung field (principal); J18.9 Pneumonia, unspecified organism
CPT/HCPCS: 71046

== ENCOUNTER 2023-01-10 21:59 | Emergency (ER) | payer SELFPAY ==
[~2023-01-10] VITALS: Ht 182 cm; Wt 132.3 kg
[2023-01-10] MEDS ORDERED: CEPHALEXIN 250 MG (KEFLEX) CAP PO ONE (22:30)
[2023-01-10] MEDS ORDERED: TETANUS,DIPTH,PERTUSS P/F (BOOSTRIX) 0.5 ML VIAL IM ONE (22:30)
[2023-01-10] MEDS ORDERED: CEPH500T PO (22:34)
--- NOTE | 2023-01-10 22:35 | ED Lower Extremity ---
General Chief Complaint: Lower Extremity Stated Complaint: R FOOT LAC Nursing Triage Note: pt states has neuropathy of feet, states was cutting his toes when he noticed blood. patient states "cut the tips of toes off". patient arrived with dressing in place. 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 Patient denies pain. Patient is not up-to-date with tetanus immunization. Patient has appointment with his new primary care annabelle swenson on January 17. Allergies and Home Medications Allergies Coded Allergies: NSAIDS (Non-Steroidal Anti-Inflamma (Unverified Allergy, Unknown, 01/10/23) clindamycin (Unverified Allergy, Unknown, 01/10/23) pravastatin (Unverified Allergy, Unknown, 01/10/23) simvastatin (Unverified Allergy, Unknown, 01/10/23) sulfamethoxazole (Unverified Allergy, Unknown, 01/10/23) trimethoprim (Unverified Allergy, Unknown, 01/10/23) Patient Home Medication List Home Medication List Reviewed: Yes Cephalexin (Cephalexin) 500 Mg Tablet, 500 MG PO QID Prescribed by: Ofe vásquez on 01/10/232233 Dexamethasone (Dexamethasone) 6 Mg Tablet, 6 MG PO DAILY Prescribed by: UMU JOHNSON on 03/10/21 1406 Famotidine (Pepcid) 20 Mg Tablet, 40 MG PO BID Prescribed by: UMU JOHNSON on 03/10/21 1406 Ivermectin (Ivermectin) 3 Mg Tablet, 30 MG PO DAILY Prescribed by: UMU JOHNSON on 03/10/21 1406 Naproxen (Naprosyn) 500 Mg Tablet, 500 MG PO BID Prescribed by: YRIS GOTTI on 01/08/19 1213 Review of Systems Constitutional: no symptoms reported EENTM: no symptoms reported Respiratory: no symptoms reported Cardiovascular: no symptoms reported Gastrointestinal: no symptoms reported Genitourinary: no symptoms reported Musculoskeletal: see HPI Skin: see HPI Psychiatric/Neurological: No Symptoms Reported All Other Systems Reviewed Negative Unless Noted: Yes Past Dahjqrv-Jgpvgw-Inxpyf Hx Past Medical History Surgery/Hospitalization HX: HTN and pre-diabetes. Recently discharged from [facility] for hypoxia, hyponatriam, and dehydration due to Covid infection. Surgeries: Yes Appendectomy Respiratory: No Cardiac: Yes Hypertension Neurological: No Genitourinary: No Gastrointestinal: No Musculoskeletal: No Endocrine: No HEENT: No Cancer: No Psychosocial: No Integumentary: No Physical Exam Vital Signs Vital Signs - First Documented 01/10/23 22:04 Temp 36.5 Pulse 78 Resp 20 B/P (MAP) 148/76 (100) Pulse Ox 95 O2 Delivery Room Air Capillary Refill : Less Than 3 Seconds Height, Weight, BMI Height: 6'0" Weight: 265lbs. oz. 120.452031io; 39.00 BMI Method:Stated General Appearance: WD/WN, obese HEENT: PERRL/EOMI, normal ENT inspection Neck: non-tender, full range of motion Cardiovascular: regular rate, rhythm, no edema Respiratory: chest non-tender, lungs clear, normal breath sounds, no respiratory distress, no accessory muscle use Back: normal inspection Hips: bilateral hip non-tender Legs: bilateral leg non-tender Knees: bilateral knee non-tender Ankles: bilateral ankle non-tender Feet: right foot abrasions/lacerations (Contusion and missing small part of the skin of the tip of second and third and fourth toe and abrasion of great toe without active on right foot ) Neurologic/Tendon: normal motor functions Neurologic/Psychiatric: alert, normal mood/affect Skin: normal color, warm/dry Progress/Results/Core Measures Results/Orders My Orders Orders - OFE VÁSQUEZ MD Dipht,Pertuss(Acell),Tet Adult (Boostrix (01/10/23 22:30) Cephalexin Capsule (Keflex Capsule) (01/10/23 22:30) Medications Given in ED Current Medications Medications Dose Ordered Sig/Dorian Route Start Time Stop Time Status Last Admin Dose Admin Cephalexin HCl 1,000 mg ONCE ONCE PO 01/10/23 22:30 01/10/23 22:31 DC 01/10/23 22:32 1,000 MG Diphtheria/ Tetanus/Acell Pertussis 0.5 ml ONCE ONCE IM 01/10/23 22:30 01/10/23 22:31 DC 01/10/23 22:32 0.5 ML Vital Signs/I&O 01/10/23 22:04 Temp 36.5 Pulse 78 Resp 20 B/P (MAP) 148/76 (100) Pulse Ox 95 O2 Delivery Room Air Blood Pressure Mean: 100 Progress Progress Note : Progress Note Patient with history of diabetes and nondiabetic neuropathy of lower extremities cut the tip of his toes on right side when using nail clipper. Patient had small missing of skin of tip of second and third and fourth right toes and small abrasion of tip of great toe without active bleeding. Dressing with Vaseline gauze was applied and Ortho shoe was provided. Patient had tetanus immunization in ER and cephalexin was given. Patient was advised to follow-up with primary care physician or return to ER for reevaluation in 2 to 3 days. Diabetic foot care instruction was provided and prescription for cephalexin was given. Departure Impression Primary Impression: Contusion, toes Qualified Codes: S90.121A - Contusion of right lesser toe(s) without damage to nail, initial encounter Disposition: HOME, SELF-CARE Condition: Stable Departure-Patient Inst. Decision time for Depature: 22:33 Referrals: MATT NAGY APRN (PCP) Primary Care Physician [facility] (Family) Primary Care Physician Patient Instructions: Contusion (DC), Diabetic Foot Ulcer (DC), Foot Care for Diabetics Scripts Cephalexin (Cephalexin) 500 Mg Tablet 500 MG PO QID, #20 TAB 0 Refills Prov: OFE VÁSQUEZ MD 01/10/23 OFE VÁSQUEZ MD Jan 10, 2023 22:34
[2023-01-10 22:44] VITALS: BP 148/76
== END 2023-01-10 22:50 | disposition home or self-care (01) ==
LOC: EDUNIT# 21:59 → ER FS 22:01
DX: S90.121A Contusion of right lesser toe(s) without damage to nail, initial encounter (principal); S90.411A Abrasion, right great toe, initial encounter; E11.40 Type 2 diabetes mellitus with diabetic neuropathy, unspecified; E66.9 Obesity, unspecified; Z68.39 Body mass index [BMI] 39.0-39.9, adult; Z86.16 Personal history of COVID-19; Z28.310 Unvaccinated for COVID-19; Z23 Encounter for immunization; Z88.2 Allergy status to sulfonamides; W26.8XXA Contact with other sharp object(s), not elsewhere classified, initial encounter
CPT/HCPCS: 90715; 99284

== ENCOUNTER → 2023-04-20 | Outpatient (CLI) | payer OTHER ==
[~2023-04-20] MED LIST changes: +CEPH500T PO
--- NOTE | 2023-04-20 15:20 | Diagnostic Imaging Report ---
PROCEDURE: MRI right joint lower extremity without contrast. TECHNIQUE: Multiplanar, multisequence non contrast-enhanced MRI of the right lower extremity was accomplished. INDICATION: Right Achilles tendon rupture COMPARISON: None FINDINGS: There is marked bone marrow edema with T1-weighted marrow replacement at the posterior calcaneus. There does appear to be a fracture of the posterior calcaneus at the Achilles tendon attachment. No other fractures are seen in the right ankle. There are moderate to marked degenerative changes at the posterior lateral ankle. There is a small joint effusion. The anterior inferior tibiofibular ligament appears thickened and irregular, likely from remote injury. The anterior talofibular ligament appears chronically torn. The calcaneofibular ligament is intact. The posterior talofibular ligament is intact. The fibers of the deltoid ligament appear intact. The spring ligament is intact. The sinus tarsi demonstrates normal fat signal. The Achilles tendon demonstrates moderate tendinosis with high-grade partial tearing at the insertion. The peroneal tendons are intact. The flexor tendons are intact. The extensor tendons are intact. There is mild superficial and deep soft tissue edema about the ankle. There is generalized muscular atrophy, likely related to disuse. No soft tissue masses or fluid collections are seen. IMPRESSION: 1. Nondisplaced fracture of the posterior calcaneus at the Achilles tendon attachment with high-grade partial tearing of the distal Achilles tendon. 2. Findings of old tears of the anterior inferior tibiofibular ligament and anterior talofibular ligaments. 3. Degenerative changes at the posterior lateral ankle with a small joint effusion. Dictated by: Dictated on workstation # [id number]
== END ==
LOC: RAD 11:58
PROVIDERS: ATTEND Nurse Practitioner
DX: S92.014A Nondisplaced fracture of body of right calcaneus, initial encounter for closed fracture (principal); M66.371 Spontaneous rupture of flexor tendons, right ankle and foot; M19.071 Primary osteoarthritis, right ankle and foot; X58.XXXA Exposure to other specified factors, initial encounter
CPT/HCPCS: 73721

== ENCOUNTER → 2023-04-21 | Outpatient (CLI) | payer OTHER | LOC: CARD 12:03 | PROVIDERS: ATTEND Physician Assistant | DX: R00.2 Palpitations (principal) | CPT/HCPCS: 93246 ==